=== PATIENT | male | born 1975 | race Caucasian/White ===

== ENCOUNTER 2017-07-25 19:24 | Emergency (ER) | payer OTHER ==
[~2017-07-25] VITALS: Ht 172.7 cm; Wt 74.0 kg
[2017-07-25 19:39] VITALS: BP 134/67; PULSE 68; RESP 18; TEMP 98.2; O2SAT 100
[2017-07-25] MEDS ORDERED: ACETAMINOPHEN/HYDROcodone 325 MG/7.5 MG TAB PO ONE (19:45)
[2017-07-25] MEDS ORDERED: HYDR-3516 PO (19:59)
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
[2017-07-25] MEDS ORDERED: HYDR-3533 PO (21:04)
[2017-07-25] MEDS ORDERED: CYCL1TAB29 PO (21:04)
[2017-07-25] MEDS ORDERED: IBUP800T23 PO (21:04)
== END 2017-07-25 21:37 | disposition home or self-care (01) ==
LOC: NEPD 19:24
DX: S52.532A Colles' fracture of left radius, initial encounter for closed fracture (principal); S16.1XXA Strain of muscle, fascia and tendon at neck level, initial encounter; M25.511 Pain in right shoulder; V49.50XA Passenger injured in collision with unspecified motor vehicles in traffic accident, initial encounter
CPT/HCPCS: 29125; 72125; 73030; 73110